=== PATIENT | female | born 1980 | race Asian ===

== ENCOUNTER 2017-08-13 10:04 | Emergency (ER) | payer MEDICAID ==
[2017-08-13 10:14] VITALS: BP 115/68
--- NOTE | 2017-08-13 11:16 | ED Physician Documentation ---
PD HPI URI - Stated complaint Stated Complaint: THROAT PX - Chief complaint Chief Complaint: Heent - History obtained from History obtained from: Patient - History of Present Illness Timing - onset: How many days ago (few) Timing duration: Days (few) Associated symptoms: Fever, Sore throat, Swollen nodes. No: Ear pain, Nasal congestion, Dry cough, NVD Contributing factors: Sick contact (her son with strep throat currently.) Improves by: No: Rest, Medication Recently seen: Not recently seen Review of Systems Constitutional: reports: Fever, Myalgias Ears: denies: Ear pain Nose: denies: Rhinorrhea / runny nose, Congestion Throat: reports: Sore throat, Swollen tonsils Cardiac: denies: Palpitations Respiratory: denies: Cough GI: denies: Nausea, Vomiting, Diarrhea Skin: denies: Rash, Lesions Neurologic: denies: Near syncope PD PAST MEDICAL HISTORY - Past Medical History Past Medical History: No - Past Surgical History Past Surgical History: No - Present Medications Home Medications: Ambulatory Orders Medication Instructions Recorded Confirmed Cephalexin [Keflex] 500 mg PO QID #20 capsule 08/13/17 Dexamethasone [Decadron] 4 mg PO DAILY #5 tablet 08/13/17 - Allergies Allergies/Adverse Reactions: Allergies Allergy/AdvReac Type Severity Reaction Status Date / Time No Known Drug Allergies Allergy Verified 08/13/17 10:14 - Social History Does the pt smoke?: No Smoking Status: Never smoker Does the pt drink ETOH?: Yes Does the pt have substance abuse?: No - Immunizations Immunizations are current?: Yes PD ED PE NORMAL - Vitals Vital signs reviewed: Yes - General General: Alert and oriented X 3, No acute distress, Well developed/nourished - HEENT HEENT: No: Pharynx benign (redness with swelling of tonsils area. No peritonsillar swelling. normal voice and swallowing. ) - Neck Neck: Supple, no meningeal sign, Other (anterior adenopathy both sides. ) - Cardiac Cardiac: RRR, No murmur - Respiratory Respiratory: Clear bilaterally - Abdomen Abdomen: Soft, Non tender - Back Back: No CVA TTP - Derm Derm: Normal color, Warm and dry, No rash Results - Vitals Vitals: Oxygen O2 Source Room air - Labs Labs: Laboratory Tests 08/13/17 10:26 Group A Strep Rapid POSITIVE H PD MEDICAL DECISION MAKING - ED course Complexity details: reviewed results, considered differential, d/w patient Departure - Departure Disposition: 01 Home, Self Care Clinical Impression: Acute streptococcal pharyngitis Condition: Stable Record reviewed to determine appropriate education?: Yes Instructions: ED Strep Pharyngitis Conf Follow-Up: Grace Morales ARNP [Primary Care Provider] - Prescriptions: Cephalexin [Keflex] 500 mg PO QID #20 capsule Dexamethasone [Decadron] 4 mg PO DAILY #5 tablet Comments: Drink lots of fluids. Tylenol ibuprofen if needed for fevers and pains. Decadron daily helps with inflammation and reduce his symptoms. Cephalexin 4 times a day for the next 5 days for the infection. Recheck if not improved over the next few days. Discharge Date/Time: 08/13/17 11:39
[2017-08-13] MEDS ORDERED: cephALEXin 250 MG CAPSULE PO STA (11:24)
[2017-08-13] MEDS ORDERED: DEXAMETHASONE 10 MG/ML VIAL PO STA (11:24)
[2017-08-13] MEDS ORDERED: CHERRY SYRUP 10 ML UDC PO ONE (11:39)
== END 2017-08-13 11:39 | disposition home or self-care (01) ==
LOC: ED 10:04
DX: J02.0 Streptococcal pharyngitis (principal)
CPT/HCPCS: 87430; 99283; A9270

== ENCOUNTER 2018-07-13 10:05 | Emergency (ER) | payer MEDICAID ==
[2018-07-13 10:23] VITALS: BP 125/69
[2018-07-13] MEDS ORDERED: DEXAMETHASONE 10 MG/ML VIAL PO STA (11:53)
--- NOTE | 2018-07-13 12:02 | ED Physician Documentation ---
PD HPI HEENT - Stated complaint Stated Complaint: SORE THROAT/FEVER - Chief complaint Chief Complaint: Heent - History obtained from History obtained from: Patient - History of Present Illness Timing - onset: Yesterday Timing - duration: Days (1) Timing - details: Abrupt onset, Still present Location: Throat Improves: Medication Worsens: Swalllowing Associated symptoms: Fever, Congestion Similar symptoms before: Diagnosis (strep) Recently seen: Not recently seen - Additional information Additional information: 37-year-old female mother of 4 children under the age of 7 has developed a sore throat. She does not have cough she does have fever. Review of Systems Constitutional: reports: Fever Eyes: denies: Decreased vision Ears: denies: Ear pain Nose: reports: Congestion Throat: reports: Sore throat Cardiac: denies: Chest pain / pressure, Palpitations Respiratory: denies: Dyspnea, Cough GI: denies: Nausea, Vomiting PD PAST MEDICAL HISTORY - Past Surgical History Past Surgical History: No - Present Medications Home Medications: Ambulatory Orders Medication Instructions Recorded Confirmed Cephalexin [Keflex] 500 mg PO QID #20 capsule 08/13/17 Dexamethasone [Decadron] 4 mg PO DAILY #5 tablet 08/13/17 RX: Amoxicillin 875 mg PO BID #20 tablet 07/13/18 - Allergies Allergies/Adverse Reactions: Allergies Allergy/AdvReac Type Severity Reaction Status Date / Time No Known Drug Allergies Allergy Verified 08/13/17 10:14 - Social History Does the pt smoke?: No Smoking Status: Never smoker Does the pt drink ETOH?: Yes Does the pt have substance abuse?: No - Immunizations Immunizations are current?: Yes PD ED PE NORMAL - Vitals Vital signs reviewed: Yes (normal ) - General General: Alert and oriented X 3, No acute distress, Well developed/nourished - HEENT HEENT: Atraumatic, PERRL, EOMI, Other (pharynx is swollen erythematous with exudate. 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, No motor deficit, No sensory deficit, Normal speech Eye Opening: Spontaneous Motor: Obeys Commands Verbal: Oriented GCS Score: 15 - Psych Psych: Normal mood, Normal affect Results - Vitals Vitals: Vital Signs - 24 hr 07/13/18 10:21 Temperature 37.3 C Heart Rate 79 Respiratory 16 Rate Blood Pressure 125/69 O2 Saturation 99 Oxygen O2 Source Room air - Labs Labs: Laboratory Tests 07/13/18 10:25 Group A Strep Rapid POSITIVE H PD MEDICAL DECISION MAKING - ED course Complexity details: considered differential, d/w patient ED course: 37-year-old female strep pharyngitis is administered DEXAmethasone 10 [address] her on some amoxicillin Departure - Departure Disposition: 01 Home, Self Care Clinical Impression: Acute streptococcal pharyngitis Condition: Stable Instructions: ED Strep Pharyngitis Conf Follow-Up: Grace Morales ARNP [Primary Care Provider] - Prescriptions: RX: Amoxicillin 875 mg PO BID #20 tablet Forms: Activity restrictions Discharge Date/Time: 07/13/18 12:11
== END 2018-07-13 12:11 | disposition home or self-care (01) ==
LOC: ED 10:05
DX: J02.0 Streptococcal pharyngitis (principal)
CPT/HCPCS: 87430; 99283